=== PATIENT | female | born 1990 | race Caucasian/White ===

== ENCOUNTER → 2020-07-20 13:41 | Outpatient (CLI) | payer SELFPAY ==
--- NOTE | ~2020-07-20 | US_ITS ---
EXAMINATION: US OB <= 14 weeks fetus DATE: 07/20/2020 14:19 INDICATION: Routine care. Assess dating of . TECHNIQUE: Real-time pelvic ultrasound utilizing both a transvaginal and transabdominal probe was pe rformed. The interpreting radiologist was not present for the study. COMPARISON: None. FINDINGS: The uterus measures 11.7 x 7.5 x 10.3 cm. There is an intrauterine gestational sac. A yolk sac and f etal pole are identified. The crown rump length measures 1.9 cm, which correlates with an estimated g estational age of 8 weeks and 3 days. heart motion is identified measuring 165 beats per minute (bpm) by M-mode Doppler.3.5 x 3.3 x 0.7 cm hypoechoic subchorionic hematoma the right side of the ut erine fundus. There is a smaller 1.7 x 0.9 x 1.2 cm hypoechoic subchorionic hematoma the left side of the uterine fundus. The right ovary measures 3.1 x 2.9 x 2.8 cm. The left ovary is not visualized There is no free fluid in the pelvis. IMPRESSION: 1. Single living fetus with heart rate of 165 bpm. 2. Gestational age by ultrasound of 8 weeks 3 day(s) +/- 5 day(s) with ultrasound estimated date of delivery (YULI) of 02/26/2021. 3. A couple small subchorionic hematomas at the left and right sides of the uterine fundus. Reviewed, dictated and finalized at location B. IMPRESSION: 1. Single living fetus with heart rate of 165 bpm. 2. Gestational age by ultrasound of 8 weeks 3 day(s) +/- 5 day(s) with ultraso und estimated date of delivery (YULI) of 02/26/2021. 3. A couple small subchorionic hematomas at the left and right sides of the pala rine fundus.
== END ==
PROVIDERS: PCP Obstetrics & Gynecology; Visit Provider Obstetrics & Gynecology
DX: Z34.91 Encounter for supervision of normal pregnancy, unspecified, first trimester (principal); Z3A.01 Less than 8 weeks gestation of pregnancy
CPT/HCPCS: 76801

== ENCOUNTER 2020-08-26 17:17 | Emergency (ER) | payer MEDICAID, SELFPAY ==
--- NOTE | 2020-08-26 17:35 | ED.URI ---
HPI - URI/Sore Throat General Chief Complaint: Upper Respiratory Infection Stated Complaint: sore throat/ear pain Time Seen by Provider: 08/26/20 17:59 Source: patient and RN notes reviewed Mode of arrival: ambulatory Limitations: no limitations History of Present Illness HPI Narrative: 29-year-old female presents concern for sore throat, ear pain. Reports her had strep throat 2 weeks ago, reports her children both have sore throats. Denies any known sick contacts. Denies intervention. She denies cough, shortness of breath, body aches, chills, sweats, rhinorrhea, nasal congestion, loss of sense of taste or smell. MD elicited complaint: sore throat Related Data Home Medications Medication Instructions Recorded Confirmed [id number] fum-folic [id number] 1 pkg PO DAILY 08/26/20 08/26/20 [Daily ] Allergies Allergy/AdvReac Type Severity Reaction Status Date / Time No Known Allergies Allergy Verified 08/26/20 18:06 Review of Systems Review of Systems: Narrative: CONSTITUTIONAL: Denies malaise, chills, sweats, or fever. EYES: Denies visual changes, redness, or discharge. ENT: Denies rhinorrhea, congestion, sinus pain. Reports otalgia and sore throat. CARDIOVASCULAR: Denies chest pain, palpitations, or edema. RESPIRATORY: Denies cough dyspnea. GASTROINTESTINAL: Denies abdominal pain, nausea, vomiting, diarrhea SKIN: Denies rash or itching. MUSCULOSKELETAL: Denies myalgia. NEUROLOGIC: Denies headache. All systems reviewed & are unremarkable except as noted in HPI and below PMFSH Comments At time of signature, agree with nursing past medical, surgical, social and family history. There is no relevant family history pertinent to the presenting complaint Exam Narrative: Exam Narrative: GENERAL: Well-appearing, well-nourished, and in no acute distress. HEAD: Normocephalic EYES: PERRLA, conjunctivae clear ENT: Nares clear, turbinates erythematous, clear discharge. Mucous membranes moist. TM pearly blancas with dull light reflex bilaterally; no tragal tenderness. Oropharynx erythematous without lesions. Tonsils not enlarged and without exudate, no drooling, no hoarseness, no trismus, uvula midline. NECK: Supple. No lymphadenopathy CHEST: Clear to auscultation, breath sounds equal. No wheezing, rhonchi, rales, or stridor. No respiratory distress, speaks in full sentences. HEART: Regular rate and rhythm. No murmur heard. SKIN: Warm, dry, no rash. NEURO: Alert and oriented x3. PSYCH: Normal mood and affect Course Course Emergency Course: Patient is aware of diagnosis, understands and agrees to treatment plan. Anticipatory guidance given. Patient agrees to follow-up as directed and is aware of reasons to seek care at the emergency department. Portions of this record may have been created with voice recognition software Vital Signs Vital signs: Vital Signs Temperature 98.9 F 08/26/20 17:48 Pulse Rate 93 08/26/20 17:48 Respiratory Rate 16 08/26/20 17:48 Blood Pressure 112/67 08/26/20 17:48 Pulse Oximetry 100 08/26/20 17:48 Temperature 98.9 F 08/26/20 17:48 Pulse Rate 93 08/26/20 17:48 Respiratory Rate 16 08/26/20 17:48 Blood Pressure 112/67 08/26/20 17:48 Pulse Oximetry 100 08/26/20 17:48 Reviewed. MDM - URI/Sore Throat MDM Narrative Medical decision making narrative: Differential diagnosis considered: Chand virus, strep pharyngitis, allergic rhinitis, upper respiratory tract infection, sinusitis, rhinosinusitis, nasopharyngitis. viral pharyngitis, otitis media, otitis externa, pneumonia, bronchitis, viral cough syndrome, viral syndrome, and influenza. Exam findings show no acute concerns or changes; patient is non-toxic appearing and is in no distress. Patient is appropriate for outpatient treatment and follow-up. Lab Data Labs: Strep Screen Presumptive Negative *(Reference Range: Negative)* Critical C
[2020-08-26 17:48] VITALS: BP 112/67; PULSE 93; RESP 16; TEMP 37.2; O2SAT 100
== END 2020-08-26 18:25 | disposition home or self-care (01) ==
PROVIDERS: Emergency Provider Nurse Practitioner
DX: J06.9 Acute upper respiratory infection, unspecified (principal)
CPT/HCPCS: 87081; 87880; 99203; G0463

== ENCOUNTER 2020-09-29 12:43 | Outpatient (CLI) | payer MEDICAID, SELFPAY ==
--- NOTE | ~2020-09-29 | US_ITS ---
EXAMINATION: US OB follow up EXAM DATE: 09/29/2020 13:49 INDICATION: Subchorionic hematoma. 2nd trimester. TECHNIQUE: Pelvic obstetrical transabdominal sonogram was performed by a technologist. There are mu ltiple grayscale and Doppler images available for interpretation. Comparison is made to prior examina tion from 07/20/2020. FINDINGS: There is a single fetus identified in breech presentation with a heart rate of 144 beats pe r minute. The placenta is located in the posterior previa position, follow up recommended. There is no sonographic evidence of retroplacental hemorrhage identified. There is subjectively expected amoun t of amniotic fluid. BIOMETRIC DATA: Biparietal diameter (BPD): 4.2 cm ----------------> 18 weeks 5 days. Head circumference (HC): 15.7 cm ----------------> 18 weeks 4 days. Abdominal circumference (AC): 12.9 cm ----------> 18 weeks 5 days. Femur length (FL): 2.9 cm --------------------------> 18 weeks 4 days. These measurements are concordant. HC/AC ratio is 1.19 (The 5th -- 95th percentile range is 1.09-1.26. Estimated weight is 251 g +/- 38 g. This is the 51st percentile when the currently reported cl inical gestation age 18 weeks 4 days, clinical estimated date of delivery (YULI-OPE) 02/26/2021 is use d. estimated gestational age based on measurements from this exam is 18 weeks 5 days, with an e stimated date of delivery (YULI-AUA) 02/25. IMPRESSION: 1. Single fetus in breech presentation with heart rate 144 beats per minute. 2. Estimated weight of 251 grams, 51st percentile using the currently reported clinical gestat ion age of 18 weeks 4 days, YULI(OPE) 02/26. 3. Placenta posterior PREVIA position. Recommend one-month follow-up exam. Reviewed, dictated and finalized at location G. IMPRESSION: 1. Single fetus in breech presentation with heart rate 144 beats per minute. 2. Estimated weight of 251 grams, 51st percentile using the currently re ported clinical gestation age of 18 weeks 4 days, YULI(OPE) 02/26. 3. Placenta posterior PREVIA position. Recommend one-month follow-up exam.
== END 2020-09-29 12:44 | disposition home or self-care (01) ==
PROVIDERS: PCP Obstetrics & Gynecology; Visit Provider Obstetrics & Gynecology
DX: Z34.91 Encounter for supervision of normal pregnancy, unspecified, first trimester (principal); Z3A.18 18 weeks gestation of pregnancy
CPT/HCPCS: 76816

== ENCOUNTER 2021-01-05 13:22 | Outpatient (CLI) | payer BC, SELFPAY ==
--- NOTE | ~2021-01-05 | US_ITS ---
EXAMINATION: US OB follow up DATE: 01/05/2021 14:20 INDICATION: Supervision of normal during third trimester. TECHNIQUE: Real-time ultrasound of the pelvis was performed. The interpreting radiologist was not pre sent for the study. COMPARISON: None. FINDINGS: There is a single living fetus in breech presentation. The placenta is posterior. heart rate i s 139 beats per minute (bpm). The amniotic fluid index is 15.2 cm, which is normal (5th%-95%: 8.6-34 .2 cm at 32 weeks estimated gestational age). The following biometric data were obtained: BPD: 8.4 cm -> 33 weeks 5 days Head circumference: 30.2 cm -> 33 weeks 4 days Abdominal circumference: 28.1 cm -> 32 weeks 1 days Femur length: 6.3 cm -> 32 weeks 5 days These measurements are concordant. Head circumference to abdominal circumference ratio: 1.07 (normal range 0.96-1.11). Estimated weight: 2010 g (+/-) 301 g or 4 lbs. 7 oz. (+/-) 11 oz. IMPRESSION: 1. Single living fetus in breech presentation with heart rate of 139 bpm. 2. Normal amniotic fluid index of 15.2 cm. 3. Estimated weight is 41st percentile by Hadlock criteria when 02/26/2021 is used as the estim ated date of delivery (YULI). Please correlate with clinical information or earlier ultrasounds for mo st accurate YULI. Reviewed, dictated and finalized at location A. IMPRESSION: 1. Single living fetus in breech presentation with heart rate of 139 bpm. 2. Normal amniotic fluid index of 15.2 cm. 3. Estimated weight is 41st percentile by Hadlock criteria when 1 is used as the estimated date of delivery (YULI). Please correlate with clinic al information or earlier ultrasounds for most accurate YULI.
== END 2021-01-05 13:23 | disposition home or self-care (01) ==
LOC: ANHIMG 13:26
PROVIDERS: Visit Provider Obstetrics & Gynecology
DX: Z34.93 Encounter for supervision of normal pregnancy, unspecified, third trimester (principal); Z3A.30 30 weeks gestation of pregnancy
CPT/HCPCS: 76816

== ENCOUNTER 2021-01-17 02:32 | Observation (INO) | payer BC, SELFPAY ==
[2021-01-17] VITALS (9 sets, daily range): BP systolic 76–120; BP diastolic 52–65; PULSE 83–95; BMI 39.4
--- NOTE | 2021-01-17 03:02 | OBADM ---
This patient, Aleena Rodriguez, admitted to the OB room OB Post 113 for observation. Patient/family oriented to hospital policies and general routines including ID bracelet, bed and alarms, visiting hours, pain management, procedures, bathroom and other care routines, personal items, smoking policy, room service/diet, and visiting hours. Patient/Family are encouraged to report perceived risks to care and to ask questions if they do not understand what they are told or what they should do.
[2021-01-17] MEDS: LACTATED RINGERS 1,000 ML 999 ML IV CONT (03:53)
[2021-01-17 04:19] LABS: Hematocrit 31.2 % (37.0-47.0); Hemoglobin 9.8 g/dL (12.0-15.0); Mean Corpuscular HGB Conc 31.4 g/dl (32-36); Mean Corpuscular Hemoglobin 28.2 pg (26-34); Mean Corpuscular Volume 89.9 fl (80-100); Mean Platelet Volume 11.3 fl (7.4-10.4); Platelet Count Result 104 k/mm3 (150-375); Red Blood Count 3.47 M/mm3 (4.2-5.4); Red Cell Distribution Width 17.5 % (11.5-14.5); White Blood Count 9.6 K/mm3 (4.5-10.0)
[2021-01-17 04:24] LABS: Add Urine Microscopic? YES; Appearance Urine Clear (Clear); Bacteria Urine Trace /hpf; Bilirubin Urine Negative (Negative); Blood Urine Negative (Negative); Color Urine Yellow (Yellow); Glucose Urine UA Negative (Negative); Ketones Urine 1+ mg/dL (Negative); Leukocyte Esterase Ur Trace LEU/UL (NEGATIVE); Mucus Urine Rare /lpf; Nitrate Urine Negative (Negative); Protein Urine Negative (Negative); Specific Grav Ur 1.023 (1.001-1.035); Squamous Epithelial Cell Urine Few /hpf (Few); Urobilinogen Urine Negative mg/dL (<2.0)
[2021-01-17 04:39] LABS: Alanine Aminotransferase 13 U/L (4-35); Albumin Level 3.5 g/dL (3.5-5.1); Alkaline Phosphatase 110 U/L (38-126); Anion Gap 9 mmol/L (8-16); Aspartate Amino Transferase 23 U/L (14-36); Bilirubin,Total 0.3 mg/dL (0.2-1.3); Blood Urea Nitrogen 8 mg/dL (7-17); Calcium 8.2 mg/dL (8.4-10.2); Carbon Dioxide 20 mmol/L (22-30); Chloride 107 mmol/L (98-107); Estimated CRCL calculation 232 ml/min; Estimated Glomerular Filt Rate > 60; Glucose 91 mg/dL (65-110); Potassium 3.6 mmol/L (3.4-5.0); Sodium 136 mmol/L (137-145)
--- NOTE | 2021-01-17 10:11 | P.PNOB_ITS ---
OB - Triage/Final Diagnosis Visit Information Comments/Additional reasons for admission: I have assessed the risk for this patient, Aleena Rodriguez, and determined that she would benefit from observation care. Evaluation Laboratory results: Laboratory Tests 01/17/21 01/17/21 01/17/21 03:51 03:51 04:01 WBC 9.6 RBC 3.47 L Hgb 9.8 L Hct 31.2 L MCV 89.9 MCH 28.2 MCHC 31.4 L RDW 17.5 H Plt Count 104 L MPV 11.3 H Sodium 136 L Potassium 3.6 Chloride 107 Carbon Dioxide 20 L Anion Gap 9 BUN 8 Creatinine 0.30 L Estim Creat Clear Calc 232 Estimated GFR > 60 Glucose 91 Calcium 8.2 L Total Bilirubin 0.3 AST 23 ALT 13 Alkaline Phosphatase 110 Total Protein 7.0 Albumin 3.5 Urine Color Yellow Urine Appearance Clear Urine pH 6.0 Ur Specific [place] 1.023 Urine Protein Negative Urine Glucose (UA) Negative Urine Ketones 1+ H Ur Blood (Man) Negative Urine Nitrate Negative Urine Bilirubin Negative Urine Urobilinogen Negative Ur Leukocyte Esterase Trace H Urine RBC 3-5 H Urine WBC 4-6 H Ur Squamous Epith Cells Few Urine Bacteria Trace Urine Mucus Rare Vital signs: Vital Signs - 24 hr 01/17/21 03:01 01/17/21 03:15 01/17/21 03:30 Pulse Rate 95 92 94 Blood Pressure 111/53 L 104/56 L 120/65 01/17/21 03:45 01/17/21 04:00 01/17/21 04:15 Pulse Rate 89 84 86 Blood Pressure 102/60 101/58 L 108/57 L 01/17/21 04:31 01/17/21 04:33 01/17/21 04:45 Pulse Rate 88 84 83 Blood Pressure 76/52 L 102/55 L 105/59 L Final Diagnosis (1) False labor: Code(s): O47.9 - False labor, unspecified Status: Acute
== END 2021-01-17 05:30 | disposition home or self-care (01) ==
PROVIDERS: Admitting Provider Obstetrics & Gynecology; Visit Provider Obstetrics & Gynecology
DX: O47.9 False labor, unspecified (principal); Z3A.00 Weeks of gestation of pregnancy not specified
CPT/HCPCS: 36415; 80053; 81001; 85027; G0378; G0379; J7120

== ENCOUNTER 2021-02-06 09:32 | Inpatient (IN) | payer BC, SELFPAY ==
[2021-02-06] VITALS (171 sets, daily range): BP systolic 88–138; BP diastolic 48–104; PULSE 58–120; TEMP 36.6–37.1; O2SAT 80–100; BMI 40.3
--- OUTSIDE RECORDS SUMMARY | 2021-02-06 10:15 | XMS_ITS ---
:1990 Author Care Team Providers Name Role Phone CLARE FREY MD Geophysical Data Technician [phone] Allergies Code Code System Name Reaction Severity Status Onset NKDA ? Medications Name Status Start Date Stop Date ? ? Anusol-HC 2.5 % rectal cream with applicator Unknown ? Not available Insert 1 application as needed by rectal route. Anusol-HC 25 mg rectal suppository Unknown ? Not available Insert 1 suppository twice a day by rectal route for 14 days. aspirin 81 mg tablet,delayed release Active ? Not available azithromycin 250 mg tablet Completed ? 07/16 TAKE 2 TABLETS (500 MG) BY ORAL ROUTE O NCE DAILY FOR 1 DAY THEN 1 TABLET (250 MG) BY ORAL ROUTE ONCE DAILY FOR 4 DAYS azithromycin 500 mg tablet Completed ? 02/16 Take 2 tablets every day by oral route for 1 day. bupropion HCl SR 150 mg tablet,12 hr sustained-release Completed ? 09/05/2017 TAKE ONE TABLET BY MOUTH TWICE DAILY Calcium 600 with Vitamin D3 600 mg (1,500 mg)-400 unit capsule C ompleted ? 01/06/2021 Take 1 capsule twice a day by oral route. calcium carbonate 600 mg (1,500 Active ? Not available mg)-vitamin D3 400 unit tablet calcium carbonate-vitamin D3 600 mg (1,500 mg)-800 unit tablet C ompleted ? 09/05/2017 Take 1 tablet twice a day by oral route. Caltrate 600 plus D 600 mg (1,500 mg)-800 unit chewable tablet Completed ? 02/16/2017 Take 1 tablet twice a day by oral route. Celexa 40 mg tablet Unknown ? Not availabl e Take 1 tablet every day by oral route. cephalex
--- OUTSIDE RECORDS SUMMARY | 2021-02-06 10:15 | XMS_ITS | Encounter Summary ---
:1990 Author Care Team Providers Name Role Phone Adam Kelsey MD Pediatrics Physician [phone] Reason for Visit ob routine visit CC Pt is having some discharge. Pt havin g a lot of cramping in lower abdomen and pelvis area. Pt having nirav guzman contractions. Pt is having a lot of dizziness. No spotting, fluid leakage. Baby moving a lot. Assessment and Plan 1. Routine care needs US in Nov to confirm braydon ech position of fetus ? urinalysis, dipstick ? culture, vaginal/rectal, s treptococcus group B - PLEASE FAX RESULTS TO [facility] [phone] ? bacterial vaginosis + vagi nitis panel, vaginal - PLEASE FAX RESULTS TO [facility] [phone] ? HSV (1+2) DNA, qual, PCR, unspecified specimen - PLEASE FAX RESULTS TO [facility] AT [phone] 2. Malpresentation of fetus BREECH persistant ? US, obstetric, 3rd trimest er 3. Group B Streptococcus carrier 4. Antiphospholipid syndrome ? S?ndrome antifosfolip?dico : instrucciones de cuidado - [antiphospholipid syndrome: care instruc tions] 5. Obesity Discussed diet, nutrition refe rral, weight loss surgery class if desired. ? cuando tiene sobrepeso: in strucciones de cuidado - [when you are overweight: care instructions] 6. Polycystic ovary syndrome 7. Sterilization requested Patient desires BTL . Consent paperwork signed 01/25/21 Discussion Note Persistent breech, now footling. Ne eds M[facility]
--- OUTSIDE RECORDS SUMMARY | 2021-02-06 10:15 | XMS_ITS | Encounter Summary ---
:1990 Author Care Team Providers Name Role Phone Adam Kelsey MD [employer] [phone] Reason for Visit ob routine visit Assessment and Plan 1. Routine care needs US in Nov to confirm braydon ech position of fetus 2. Abnormal progesterone 3. Antiphospholipid syndrome ? S?ndrome antifosfolip?dico : instrucciones de cuidado - [antiphospholipid syndrome: care instruc tions] 4. Group B Streptococcus carrier 5. Obesity Discussed diet, nutrition refe rral, weight loss surgery class if desired. ? cuando tiene sobrepeso: in strucciones de cuidado - [when you are overweight: care instructions] 6. Sterilization requested Patient desires BTL . Consent paperwork signed 01/25/21 7. Subchorionic hematoma US on 07/20/2020 with two small BALJIT. Continue ASA and progesterone. Ordered repeat US today. Discussion Note: None recorded. Plan of Care Reminders Provider Appointments Ob 15 02/08/2021 Adam mccord MD 3:45PM Lab None ? ? recorded. Referral None ? ? recorded. Procedures None ? ? recorded. Surgeries None ? ? recorded. Imaging None ? ? recorded. Me
--- OUTSIDE RECORDS SUMMARY | 2021-02-06 10:16 | XMS_ITS | Encounter Summary ---
:1990 Author Care Team Providers Name Role Phone Adam Kelsey MD [employer] [phone] Reason for Visit ob routine visit Assessment and Plan 1. Routine care ? urinalysis, dipstick 2. Recurrent miscarriage ? cyanocobalamin (vit B-12) 1,000 mcg/mL injection solution 3. Abnormal progesterone 4. Antiphospholipid syndrome ? S?ndrome antifosfolip?dico : instrucciones de cuidado - [antiphospholipid syndrome: care instruc tions] 5. Subchorionic hematoma US on 07/20/2020 with two small BALJIT. Continue ASA and progesterone. Ordered repeat US today. 6. Sterilization requested Patient desires BTL . Consent paperwork signed... 7. Group B Streptococcus carrier Discussion Note: None recorded. Plan of Care Reminders Provider Appointments Ob 15 Adam mccord, 02/08/2021 3:45PM Lab Urinalysis, In-Of fice Order Dipstick 01/19/2021 Referral None ? ? recorded. Procedures None ? ? recorded. Surgeries None ? ? recorded. Imaging None ? ? recorded. Medications Name Start Date ? ?
--- OUTSIDE RECORDS SUMMARY | 2021-02-06 10:16 | XMS_ITS | Encounter Summary ---
:1990 Author Care Team Providers Name Role Phone Adam Kelsey MD Facility Specialist [phone] Reason for Visit ob routine visit Assessment and Plan Assessment Note PEE MccabeS 1. Routine care ? urinalysis, dipstick 2. Sterilization requested Patient desires BTL . Consent paperwork signed... 3. Subchorionic hematoma US on 07/20/2020 with two small BALJIT. Continue ASA and progesterone. Ordered repeat US today. 4. Recurrent miscarriage ? cyanocobalamin (vit B-12) 1,000 mcg/mL injection solution 5. Abnormal progesterone 6. Group B Streptococcus carrier 7. Polycystic ovary syndrome 8. Antiphospholipid syndrome ? S?ndrome antifosfolip?dico : instrucciones de cuidado - [antiphospholipid syndrome: care instruc tions] 9. Obesity Discussed diet, nutrition refe rral, weight loss surgery class if desired. ? cuando tiene sobrepeso: in strucciones de cuidado - [when you are overweight: care instructions] Discussion Note: None recorded. Plan of Care Reminders Provider Appointments Ob 15 Adam mccord, 02/08/2021 3:45PM Lab Urinalysis, In-Of fice Order Dipstick 12/22/2020 Referral N
--- OUTSIDE RECORDS SUMMARY | 2021-02-06 10:16 | XMS_ITS | Encounter Summary ---
:1990 Author Care Team Providers Name Role Phone Adam Kelsey MD Wood Die Maker [phone] Reason for Visit Phone Visit; COVID-19 symptoms Patient is waiting to go get tested agai n for Covid . Patient complains of Headache ,cough ,no fever Assessment and Plan Assessment Note Seda DAMON 1. Routine care ? US, obstetric, 3rd trimest er ? counting your baby's kicks : care instructions ? kick counts ? CBC - In addition to our o ffice, please fax results to [facility] [phone] 2. screening ? glucose tolerance test, po st-50G, 1-hour - In addition to our office, please fax results to [facility] [phone] 3. Viral syndrome Covid exposure children tested positive 11/16/20 ? SARS CoV 2 RNA (COVID-19), QL, clam grader-PCR, respiratory specimen - Covid exposure children tested positive Discussion Note: None recorded. Plan of Care Patient Instructions Reviewed the following recommendati ons: -Stay home and separate from others as much as possible. -Monitor your symptoms and seek medical attention for trouble breathing, persistent chest pain, confus ion, or bluish lips or face. -Wear a mask if you must be around other people. -Wash y our hands often for 20 seconds with soap and water and clean high-touch surfaces fozia y -You may discontinue home isolation if your symptoms are improving and it has been 1 0 days since symptoms started. Reminders Provider Appointments Ob Federico mccord, 02/08/2021
--- OUTSIDE RECORDS SUMMARY | 2021-02-06 10:16 | XMS_ITS | Encounter Summary ---
:1990 Author Care Team Providers Name Role Phone Adam Kelsey MD Master Police Detective [phone] Reason for Visit ob routine visit Assessment and Plan 1. Routine care ? CBC - Please fax results t [facility] [phone] ? urinalysis, dipstick 2. Antiphospholipid syndrome ? S?ndrome antifosfolip?dico : instrucciones de cuidado - [antiphospholipid syndrome: care instruc tions] 3. Group B Streptococcus carrier 4. Venereal disease screening ? HIV 1+2 AB + HIV 1 p24 Ag, qualitative immunoassay, serum - Please fax results to [facility] ? RPR (rapid plasma reagin), serum - Please fax results to [facility] [phone] 5. Breech presentation 3rd trimester US ordered. RTC in 4 weeks to re-evaluate fetus position. ? giro de un beb? en posici? n de nalgas: instrucciones de cuidado - [turning a breech baby: care instruction s] Discussion Note: None recorded. Plan of Care Reminders Provider Appointments Ob 15 Adam mccord, 02/08/2021 3:45PM Lab HIV 1+2 AB + Lab[facility] orp HIV 1 P24 Ag, Qualitative 01/06/2021 Immunoassay, Serum ? RPR (Rapid Labcor p Plasma Reagin), Serum 01/06/2021 ? C[facility]
[2021-02-06] MEDS: LACTATED RINGERS 1,000 ML 125 ML IV CONT ×3 (10:39→13:36)
[2021-02-06] MEDS: AMPICILLIN 2 GM/NS 100 ML 2 GM/100 ML BAG IVPB (10:40)
--- NOTE | 2021-02-06 10:58 | LDADM ---
This patient, Aleena Rodriguez, was admitted to Labor/Delivery/Recovery 107 on 02/06/21 at 09:32. Plans for labor, pain management and were discussed with patient. Patient/family oriented to hospital policies and general routines including ID bracelet, bed and alarms, visiting hours, pain management, procedures, bathroom and other care routines, personal items, smoking policy, room service/diet and guest tray routines, security routines, and visiting hours. Patient/Family are encouraged to report perceived risks to care and to ask questions if they do not understand what they are told or what they should do. See OBIX for further documentation.
[2021-02-06 11:21] LABS: Basophils Percent Auto 0.3 % (0.2-1.2); Eosinophils Absolute Auto 0.1 K/mm3 (0-0.3); Eosinophils Percent Auto 0.6 % (0-4.4); Hematocrit 34.1 % (37.0-47.0); Hemoglobin 10.9 g/dL (12.0-15.0); Immature Granulocyte Absolute 0.09 K/mm3 (0.00-0.031); Immature Granulocyte Percent A 0.9 % (0-0.5); Lymphocytes Absolute Auto 2.12 K/mm3 (0.9-3.2); Lymphocytes Percent Auto 21.5 % (18.3-44.2); Mean Corpuscular Hemoglobin 28.1 pg (26-34); Mean Corpuscular Volume 87.9 fl (80-100); Mean Platelet Volume 10.9 fl (7.4-10.4); Monocytes Absolute Auto 0.6 K/mm3 (0.1-0.6); Monocytes Percent Auto 6.2 % (2.6-8.5); Neutrophils Percent Auto 70.5 % (45.5-73.1); Platelet Count Result 253 k/mm3 (150-375); Red Blood Count 3.88 M/mm3 (4.2-5.4); Red Cell Distribution Width 16.3 % (11.5-14.5); White Blood Count 9.9 K/mm3 (4.5-10.0)
--- NOTE | 2021-02-06 12:01 | PM.IMHP ---
H&P: HPI History of Present Illness Date/Time: 02/06/21 12:01 30-year-old presents To [facility] Labor and delivery with spontaneous onset of labor at 37w2d fadia every 2 minutes found to be 3 cm on admission with vertex presentation. she denies rupture membranes or vaginal bleeding she has had active activity. Patient states that she recently felt spontaneous version occurred the day after her office visit on Monday and then had ultrasound at [facility] confirming the baby is indeed vertex with estimated weight 3700 g and LINDSEY of 9.0 and biophysical profile 8/8. complicated by 2 miscarriages, antiphospholipid syndrome, low progesterone, PCOS, GBS +, hyperlipidemia, and obesity. US on 02/05 at [facility] Radiology showed fetus in vertex presentation with estimated weight 3700 g and amniotic fluid index of 9 and a biophysical 8/8(as with previous pregnancies. patient had successful spontaneous version). Patient's care began 07 16 2020 Her EDC was confirmed by first-trimester ultrasound on at 8 weeks and 3 days giving her an YULI 02/26/2021 and she has had 11 visits. was evaluated with noninvasive testing normal negative for genetic abnormalities and male identified, AFP was normal, ultrasounds - negative anomaly screen normal interval growth on serial ultrasounds, baby was in breech presentation until week prior to delivery and had spontaneous version. 1 hour glucose normal and GBS negative. Patient had positive COVID-19 SARs test and confirmed diagnosis of COVID infection November 2020. She now declines Tdap, influenza and COVID vaccination. She desires epidural anesthesia she is having a boy she is unsure about circumcision she is and bottle feeding the manager workers compensation for the baby is [facility] [address] [place] and control desired his tubal sterilization tubal papers have been signed in October 2020. She previously had also desired a ParaGard IUD for control She understands her condition procedure and risks involved she understands maternal or indications for delivery with risks involved including but not limited to bleeding infection injury to bladder bowel baby pelvic vessels DVT pneumonia wound infections endometritis UTI the risk of anesthesia she understands risk hemorrhage in the risk of shoulder dystocia. Informed consent obtained she agrees to proceed. Chief Complaint: intrauterine at 37 weeks spontaneous onset of labor Review of Systems Review of Systems: All systems reviewed & are unremarkable except as noted in HPI and below Constitutional: Constitutional: Reports no additional constitutional complaints Eyes: Eyes: Reports no additional eye complaints ENT: Reports system reviewed and no additional complaints, except as documented Cardiovascular: Cardiovascular: Reports no additional cardiovascular complaints Respiratory: Respiratory: Reports no additional respiratory complaints Gastrointestinal: Gastrointestinal: Reports no additional gastrointestinal complaints Genitourinary: Genitourinary: Reports no additional female genitourinary complaints Musculoskeletal: Musculoskeletal: Reports no additional musculoskeletal complaints Integumentary/Breasts: Skin/Breast: Reports system reviewed and no additional complaints, except as docu Neurologic: Reports system reviewed and no additional complaints, except as documented Psychiatric: Psychiatric: Reports no additional psychiatric complaints Endocrine: Endocrine: Reports no additional endocrine complaints Hematologic/Lymphatic: Hematologic/Lymphatic: Reports no additional hematologic/lymphatic complaints Allergic/Immunologic: Allergic/Immunologic: Reports no additional allergic/immunologic complaints [facility], [facility] Past Medical History Medical History (Updated 02/06/21 @ 13
--- NOTE | 2021-02-06 13:10 | P.HP_ITS ---
Obstetrics - Admit Note Admission Note: record reviewed. No pertinent additions to the history and/or any subsequent changes in the physical findings that are not consistent with the expected course of the were found. Additions to the history and/or subsequent changes in the physical findings follow. None. 30-year-old presents To [facility] Labor and delivery with spontaneous onset of labor at 37w2d fadia every 2 minutes found to be 3 cm on admission with vertex presentation. she denies rupture membranes or vaginal bleeding she has had active activity. Patient states that she recently felt spontaneous version occurred the day after her office visit on Monday and then had ultrasound at [facility] confirming the baby is indeed vertex with estimated weight 3700 g and LINDSEY of 9.0 and biophysical profile 8/8. complicated by 2 miscarriages, antiphospholipid syndrome, low progesterone, PCOS, GBS +, hyperlipidemia, and obesity. US on 02/05 at [facility] Radiology showed fetus in vertex presentation with estimated weight 3700 g and amniotic fluid index of 9 and a biophysical 8/8(as with previous pregnancies. patient had successful spontaneous version). Patient's care began 07 16 2020 Her EDC was confirmed by first- trimester ultrasound on at 8 weeks and 3 days giving her an YULI 02/26/2021 and she has had 11 visits. was evaluated with noninvasive testing normal negative for genetic abnormalities and male identified, AFP was normal, ultrasounds - negative anomaly screen normal interval growth on serial ultrasounds, baby was in breech presentation until week prior to delivery and had spontaneous version. 1 hour glucose normal and GBS negative. Patient had positive COVID-19 SARs test and confirmed diagnosis of COVID infection November 2020. She now declines Tdap, influenza and COVID vaccination. She desires epidural anesthesia she is having a boy she is unsure about circumcision she is and bottle feeding the insurance assistant for the baby is [facility] [address] [place] and control desired his tubal sterilization tubal papers have been signed in October 2020. She previously had also desired a ParaGard IUD for control She understands her condition procedure and risks involved she understands maternal or indications for delivery with risks involved including but not limited to bleeding infection injury to bladder bowel baby pelvic vessels DVT pneumonia wound infections endometritis UTI the risk of anesthesia she understands risk hemorrhage in the risk of shoulder dystocia. Informed consent obtained she agrees to proceed.
--- NOTE | 2021-02-06 13:10 | PM.OBPNLAB ---
Pain Control Date/time seen: 02/06/21 13:10 Pain control: tolerating well and epidural Pelvic Exam Dilation (cm): 4 Effacement (%): 50 station: -3 Amniotic membrane status: Ruptured ( artificial rupture membranes with amnio hook clear fluid obtained) Comments: external monitors due to shortness inch of IUPC /FSE Contractions Monitor mode: External Contraction frequency: 5 Contraction duration: 30 Contraction pattern: Regular Contraction phase: Contraction Contraction intensity: Moderate Status status: Category l Assessment and Plan Assessment: active labor Plan: continuous present management
[2021-02-06] MEDS: AMPICILLIN 1 GM/NS 50 ML 1 GM/50 ML BAG IVPB ×2 (13:36→19:00)
[2021-02-06] MEDS: OXYTOCIN 30 UNITS/NS 500 ML 30 UNITS/500 ML BAG IV CONT ×2 (14:15→21:09)
--- NOTE | 2021-02-06 15:22 | PM.OBPNLAB ---
Pain Control Date/time seen: 02/06/21 15:22 Pain control: tolerating well and epidural Pelvic Exam Dilation (cm): 4 Effacement (%): 50 station: -3 Amniotic membrane status: Ruptured ( artificial rupture membranes with amnio hook clear fluid obtained) Contractions Monitor mode: Internal Contraction frequency: 5 Contraction pattern: Regular Contraction phase: Resting Contraction intensity: Mild Status status: Category l Assessment and Plan Pitocin rate (mU/min): 8 Assessment: active labor Plan: continuous present management and begin patient augmentation
--- NOTE | 2021-02-06 17:28 | PM.OBPNLAB ---
Pain Control Date/time seen: 02/06/21 17:28 Pelvic Exam Dilation (cm): 4 Effacement (%): 75 station: -3 Amniotic membrane status: Ruptured ( artificial rupture membranes with amnio hook clear fluid obtained) Contractions Monitor mode: Internal Contraction frequency: 3 Contraction duration: 45 Contraction pattern: Regular Contraction phase: Resting Contraction intensity: Moderate Status status: Category l Assessment and Plan Pitocin rate (mU/min): 12 Assessment: active labor Plan: continuous present management and begin patient augmentation
--- NOTE | 2021-02-06 19:24 | PM.OBPNLAB ---
Pain Control Date/time seen: 02/06/21 19:24 Pelvic Exam Dilation (cm): 6 Effacement (%): 75 station: -2 Amniotic membrane status: Ruptured ( artificial rupture membranes with amnio hook clear fluid obtained) Contractions Monitor mode: Internal Contraction frequency: 3 Contraction pattern: Regular Contraction phase: Resting Contraction intensity: Moderate Status status: Category l Assessment and Plan Pitocin rate (mU/min): 16 Assessment: active labor Plan: continuous present management and begin patient augmentation
--- NOTE | 2021-02-06 20:18 | PM.OBPNLAB ---
Pain Control Date/time seen: 02/06/21 20:18 Pelvic Exam Dilation (cm): 8 Effacement (%): 100 station: 0 Amniotic membrane status: Ruptured ( artificial rupture membranes with amnio hook clear fluid obtained) Contractions Monitor mode: Internal Contraction frequency: 3 Contraction duration: 50 Contraction pattern: Regular Contraction phase: Resting Contraction intensity: Strong/Firm Status status: Category l Assessment and Plan Pitocin rate (mU/min): 16 Assessment: active labor Plan: continuous present management
--- NOTE | 2021-02-06 20:47 | P.PCNOB_ITS ---
OB - Delivery Note Procedure Delivery date: 02/06/21 Procedure: Normal spontaneous vertex vaginal delivery a viable male infant and placenta Intrapartal events: None Induction method: none Delivery augmentation: rupture of membranes and pitocin Delivery monitor: internal FHT and internal uterine Route of delivery: Episiotomy description: None Laceration Description: None Specimen: Yes ( placenta, cord blood, cord blood gases) Quantitative Blood Loss (ml): 100 Anesthesia type: Epidural Disposition: floor Complications: none Narrative: complete cervical dilation normal spontaneous vertex vaginal delivery a viable male over an intact perineum anterior shoulder delivered without difficulty infant delivered placed on the maternal abdomen spontaneous respirations and cry cord clamped and cut. Cord gases and cord blood obtained placenta delivered spontaneous intact three-vessel cord. The uterus contracted well Pitocin given intravenously. Cervix uterus vagina perineum all checked no cuts tears or lacerations rectal sphincter intact no sponges left in the vagina the counts were correct patient in delivery room 107 stable condition. [place] Baby Date of : 02/06/21 Time of : 20:35 Weeks of gestation at delivery: 37 gender: Male Weight (pounds): 7 Weight (ounces): 6 presentation: vertex position: Left Occiput Anterior Placenta delivery description: Spontaneous and Normal Configuration cord vessel description: 3 Vessels score one minute: 9 score five minutes: 9 Narrative: normal transition taken to the nursery in stable condition normal exam skin to skin contact given delivery room
[2021-02-07 00:30] VITALS: BP 111/55; PULSE 89; RESP 16; TEMP 36.6; O2SAT 99
--- NOTE | 2021-02-07 00:51 | OBPPTRN ---
02/07/2021 at 0020 Patient transferred to post room #284 in wheelchair. Patient oriented to unit, room, information board, rooming in, admission packet and security measures. Patient verbalizes understanding.
[2021-02-07 03:42] VITALS: BP 106/52; PULSE 93; RESP 16; TEMP 36.9; O2SAT 98
[2021-02-07 04:18] LABS: Hematocrit 30.2 % (37.0-47.0); Hemoglobin 9.7 g/dL (12.0-15.0)
[2021-02-07 07:18] VITALS: BP 92/57; PULSE 77; RESP 12; TEMP 36.4; O2SAT 98
[2021-02-07] MEDS: DOCUSATE SODIUM 100 MG CAPSULE PO ×2 (07:18→16:42)
[2021-02-07] MEDS: POLYSACCHARIDE IRON COMPLEX 150 MG CAPSULE PO ×2 (07:18→16:42)
[2021-02-07] MEDS: MULTIVIT/MIN/PREN/FOL AC/IRON TABLET 1 TAB PO (07:18)
[2021-02-07] MEDS: IBUPROFEN 600 MG TABLET PO ×2 (07:19→13:29)
--- NOTE | 2021-02-07 08:49 | P.PNOB_ITS ---
OB - PN: Subj Subjective Date/time seen: 02/07/21 08:49 Patient comments: no complaints, pain well controlled, tolerating diet and flatus present [place] baby status: doing well [place] feeding status: exclusively breast feeding OB - PN: Obj Data Labs CBC & Chem 7: 02/07/21 04:13 Labs: Laboratory Results - last 24 hr 02/06/21 02/06/21 02/07/21 10:22 10:22 04:13 WBC 9.9 RBC 3.88 L Hgb 10.9 L 9.7 L Hct 34.1 L 30.2 L MCV 87.9 MCH 28.1 MCHC 32.0 RDW 16.3 H Plt Count 253 D MPV 10.9 H Immature Gran % (Auto) 0.9 H Neut % (Auto) 70.5 Lymph % (Auto) 21.5 [place] % (Auto) 6.2 Eos % (Auto) 0.6 Baso % (Auto) 0.3 Lymph # (Auto) 2.12 [place] # (Auto) 0.6 Eos # (Auto) 0.1 Baso # (Auto) 0.0 Abs Immat Gran (auto) 0.09 H Absolute Neuts (auto) 7.0 H Absolute Nucleated RBC 0.0 Nucleated RBC % 0.0 Blood Type O Positive Antibody Screen Negative OB - PN A/P Assessment and Plan (1) Term delivered: Code(s): O80 - Encounter for full-term uncomplicated delivery Status: Acute Plan day: 1 Plan: routine care, discharge home and follow up 6 weeks Time Spent With Patient Time: Total time spent is greater than 50% in coordination of care (as documented) at patient's floor/unit and/or counseling patient: Time with patient: less than 15 minutes Review of Systems Review of Systems: All systems reviewed & are unremarkable except as noted in HPI and below Exam Const: General: comfortable, no acute distress, alert and awake Chest: Breast/axilla inspection: normal inspection of the breasts Resp: Effort & Inspection: normal respiratory effort Cardio: Rate: regular rate GI: GI Palp: Yes Soft to palpation Auscultation: normal bowel sounds : General: Yes no CVA tenderness External Female Exam: normal external appearance Psych: Appearance: grossly normal Mental Status: mental status grossly normal Affect: normal affect Attitude: cooperative Thought content: Yes Normal thought content present Judgement: Good judgement present (Psych)
--- NOTE | 2021-02-07 08:51 | PM.OBDSVD ---
DS: Admitting Diagnosis Discharge Date 02/07/21 Admitting Diagnosis (1) 37 weeks gestation of : Code(s): Z3A.37 - 37 weeks gestation of Status: Acute (2) Spontaneous onset of labor: Status: Acute Assessment and Plan: admit routine L and D orders monitor observe in labor desires epidural anesthesia (3) Anti-phospholipid antibody syndrome: Code(s): D68.61 - Antiphospholipid syndrome Status: Acute (4) Recurrent loss: Code(s): N96 - Recurrent loss Status: Acute (5) GBS carrier: Code(s): Z22.330 - Carrier of Group B streptococcus Status: Acute Assessment and Plan: DS: Discharge Diagnosis Discharge Diagnosis (1) Term delivered: Code(s): O80 - Encounter for full-term uncomplicated delivery Status: Acute (2) Spontaneous onset of labor: Status: Acute (3) Anti-phospholipid antibody syndrome: Code(s): D68.61 - Antiphospholipid syndrome Status: Acute (4) 37 weeks gestation of : Code(s): Z3A.37 - 37 weeks gestation of Status: Acute (5) Recurrent loss: Code(s): N96 - Recurrent loss Status: Acute OB - DS: Summary Hospital Course Time spent discussing smoking cessation with patient: 3 to 10 minutes OB Procedures : NST and Ultrasound OB Procedures Intrapartum: Spontaneous Vag Delivery and GBS prophylaxis OB Procedures: : None Peripartum Data Infant Delivery Method: Natural Vaginal Episiotomy description: None Procedures: normal spontaneous vertex vaginal delivery a viable male infant and placenta complications: none [place] 1: Gender: Male Disposition of : home Status at Discharge Cognitive/behavioral status at discharge: normal Functional status at discharge: independent ambulation Overall status at discharge: patient is back to baseline Time Spent with Patient Time attestation: Total time spent providing and/or coordinating discharge services: Time spent: Less than 30 minutes Exam Const: General: cooperative, healthy appearing, comfortable, no acute distress, well developed, alert, awake and Physically active Nutritional Appearance: average body habitus and obese Orientation/consciousness: patient oriented x3 Limitations: no limitations HENMT: Head: normal to inspection Eyes: General: appearance normal, both eyes and all related structures Neck: Neck: normal visual inspection Chest: Chest palpation & inspection: normal inspection of the chest Resp: Effort & Inspection: normal respiratory effort Cardio: Rate: regular rate Rhythm: regular rhythm GI: Inspection: normal to inspection GI Palp: Yes Soft to palpation : External Female Exam: normal external appearance Bimanual exam- vagina & uterus: non-tender Back/Spine/Pelvis: Back: no CVA tenderness Skin: General skin exam: normal color Neuro: General: patient oriented x3, gait normal, tone normal and moves all extremities Extrem: General: normal to inspection and full ROM Psych: Appearance: grossly normal Mental Status: mental status grossly normal Speech and movement: Normal speech and movement present Affect: normal affect Attitude: cooperative Thought process: Normal thought process present Thought content: Yes Normal thought content present Insight: Good insight present (Psych) Judgement: Good judgement present (Psych) DS: Data Data Completed and Pending Labs on day of discharge: Labs from last 24 hours 02/06/21 02/06/21 02/06/21 10:22 10:22 10:22 WBC 9.9 RBC 3.88 L Hgb 10.9 L Hct 34.1 L MCV 87.9 MCH 28.1 MCHC 32.0 RDW 16.3 H Plt Count 253 D MPV 10.9 H Immature Gran % (Auto) 0.9 H Neut % (Auto) 70.5 Lymph % (Auto) 21.5 [place] % (Auto) 6.2 Eos % (Auto) 0.6 Baso % (Auto) 0.3 Lymph # (Auto) 2.12 [place] # (Auto) 0.6 E
[2021-02-07] MEDS: ACETAMINOPHEN 325 MG TABLET 650 MG PO ×2 (10:50→16:42)
[2021-02-07 13:20] VITALS: BP 92/59; PULSE 90; RESP 12; TEMP 36.6; O2SAT 97
[2021-02-07 16:42] VITALS: BP 99/60; PULSE 94; RESP 12; TEMP 36.6; O2SAT 97
[2021-02-07 18:45] VITALS: BP 119/59; PULSE 78; RESP 16; TEMP 36.6
[2021-02-07] MEDS: TETANUS,DIPHTHERIA,AC PERTUSSIS ADULT (0.5 ML) BOOSTRIX IM (20:14)
--- NOTE | 2021-02-07 20:20 | PC.NURSE ---
Patient viewed the discharge video Mother & Baby Care, The First Two Weeks . Patient was given the opportunity and encouraged to ask questions. Patient verbalized understanding of information shared and has been given the mother/baby guide for home reference.
[2021-02-08 07:23] LABS: Rapid Plasma Reagin Non-Reactive (NonReactive)
== END 2021-02-07 22:44 | disposition home or self-care (01) | DRG 560 ==
LOC: ANHLDR 20:55 → ANHOB2 02-07 00:34
PROVIDERS: Admitting Provider Obstetrics & Gynecology; Visit Provider Obstetrics & Gynecology
DX: O99.284 Endocrine, nutritional and metabolic diseases complicating childbirth (principal); Z37.0 Single live birth; Z3A.37 37 weeks gestation of pregnancy; E28.2 Polycystic ovarian syndrome; O99.214 Obesity complicating childbirth; E66.9 Obesity, unspecified; O99.12 Other diseases of the blood and blood-forming organs and certain disorders involving the immune mechanism complicating childbirth; D68.61 Antiphospholipid syndrome; O77.0 Labor and delivery complicated by meconium in amniotic fluid; O36.8330 Maternal care for abnormalities of the fetal heart rate or rhythm, third trimester, not applicable or unspecified; N96 Recurrent pregnancy loss
CPT/HCPCS: 36415; 85014; 85018; 85025; 86592; 86850; 86900; 86901; 88307; 90715; A9270; J0290; J2590; J2795; J7120

== ENCOUNTER 2021-09-21 11:46 | Outpatient (CLI) | payer BC, SELFPAY ==
--- NOTE | ~2021-09-21 | US_ITS ---
EXAMINATION: US pelvic complete w TV DATE: 09/21/2021 12:56 INDICATION: IUD strings lost. Vaginal spotting for 6 months. Comparison:No prior studies for comparison. TECHNIQUE: Multiple transabdominal and endovaginal sonographic images of the pelvis performed. FINDINGS: The uterus measures 9.5 x 5.3 x 7.5 cm. IUD in expected position in the endometrium. The en dometrial complex measures 1 cm. The right ovary measures 3.8 x 1.9 x 2 cm and the left ovary measures 2.7 x 1.2 x 1.3 cm. There are small follicles in each ovary. Normal doppler signal in both ovaries. There is no free fluid in the pelvis. There are no abnormal masses seen on either side. IMPRESSION: 1. Unremarkable pelvic ultrasound. Reviewed, dictated and finalized at location B.
== END 2021-09-21 11:47 | disposition home or self-care (01) ==
LOC: ANHIMG 11:50
PROVIDERS: PCP Physician Assistant; Visit Provider Physician Assistant
DX: T83.89XA Other specified complication of genitourinary prosthetic devices, implants and grafts, initial encounter (principal)
CPT/HCPCS: 76830; 76856